=== PATIENT | male | born 1970 | race Caucasian/White ===

== ENCOUNTER 2021-07-06 13:18 | Emergency (ER) | payer BC, OTHER ==
[~2021-07-06] VITALS: Ht 165.1 cm; Wt 75.1 kg
--- NOTE | 2021-07-06 17:08 | NUR ---
VSS. AMBULATORY BACK OUT TO LOBBY.
[2021-07-06 17:20] VITALS: BP 130/84
--- NOTE | 2021-07-06 17:21 | NUR ---
DR. LOPES AT BEDSIDE TO SEE PATIENT. SPO2 90% AT THIS TIME, TOLERATING WELL. POC EXPLAINED
--- NOTE | 2021-07-06 17:38 | NUR ---
Patient/Caregiver given discharge instructions and they have confirmed that they understand the instructions. Patient ambulatory with steady gait.
== END 2021-07-06 17:40 | disposition home or self-care (01) ==
LOC: ED 17:34
DX: J12.1 Respiratory syncytial virus pneumonia (principal); R09.02 Hypoxemia; Z20.822 Contact with and (suspected) exposure to COVID-19
CPT/HCPCS: 71045; 99284; U0003; U0005

== ENCOUNTER 2021-07-08 18:54 | Emergency (ER) | payer SELFPAY ==
[~2021-07-08] VITALS: Ht 165.1 cm; Wt 73.7 kg
[2021-07-08 19:35] LABS: BASOPHILS % (AUTO) 1 % (0-1); EOSINOPHILS % (AUTO) 0 % (1-7); LYMPHOCYTES % (AUTO) 16 % (22-44); MEAN CORPUSCULAR HEMOGLOBIN 29.1 pg (27.5-34.5); MEAN CORPUSCULAR HGB CONC 33.6 g/dL (33.2-36.2); MEAN PLATELET VOLUME 8.1 fL (7.4-10.4); MONOCYTES % (AUTO) 6 % (2-9); NEUTROPHILS % (AUTO) 77 % (42-75); PLATELET COUNT 208 x10^3/uL (130-400); RED BLOOD COUNT 4.82 x10^6/uL (4.38-5.82); RED CELL DISTRIBUTION WIDTH 13.7 % (9.4-14.8)
[2021-07-08 19:47] LABS: ALBUMIN 2.5 g/dL (3.4-5.0); ANION GAP 8 mmol/L (5-15); CALCIUM 7.9 mg/dL (8.5-10.1); CHLORIDE 105 mmol/L (98-107)
--- NOTE | 2021-07-08 21:27 | NUR ---
PT TO ROOM 39. PT REPORTS INCREASED SOB AND TROUBLE SLEEPING AT NIGHT. PT WAS TOLD HE HAS BEGINNING STAGES OF PNUEMONIA. PT WAS SWABBED FOR COVID PREVIOUSLY AND HAS NOT RECIEVED THE RESULTS YET. PT CONNECTED TO MONITOR AND ON 2L NC. [id number]
--- NOTE | 2021-07-08 22:40 | NUR ---
PT SWABBED FOR COVID-19 AND WALKED TO LAB.
--- NOTE | 2021-07-08 23:51 | NUR ---
PT SLEEPING. NO CHANGE IN PT STATUS. WILL CONTINUE TO MONITOR.
[2021-07-09 00:19] VITALS: BP 121/85
== END 2021-07-09 00:21 | disposition home or self-care (01) ==
LOC: ED 21:15
DX: U07.1 COVID-19 (principal); J12.82 Pneumonia due to coronavirus disease 2019; R06.00 Dyspnea, unspecified
CPT/HCPCS: 36415; 71045; 80048; 82040; 84145; 85025; 87635; 99284